=== PATIENT | female | born 1970 | race Caucasian/White ===

== ENCOUNTER 2017-09-25 15:56 | Emergency (ER) | payer OTHER ==
[2017-09-25 16:14] VITALS: BP 177/100; PULSE 85; O2SAT 97
[2017-09-25] MEDS ORDERED: BACTRIM DS TABLET PO STA (16:16)
[2017-09-25] MEDS ORDERED: TORAdol 30 mg Injection IM ONE (16:16)
--- NOTE | 2017-09-25 16:22 | ERPHSYRPT ---
- History of Present Illness Time Seen by Provider: 09/25/17 16:10 Source: patient Exam Limitations: no limitations Patient Subjective Stated Complaint: pt reports right hand carpal tunnel suregery 2 wks ago-states that hand began hurting-swelling and having drainage a few days ago Triage Nursing Assessment: pt pink warm and [id number] easy and nonlabored- no cough noted-incision on right wrist not approximated-clear drainage noted- redness around site-no warmth noted at this time-radial pulse present-pt reports full sensation to extremity Physician History: 46 y/o female s/p carpal tunnel surgery 2 weeks ago comes to the ER with complaints of right wrist pain, swelling and drainage for the past few days. Pt describes the pain as sharp, constant, 8/10 and not relieved by naproxen and tramadol. Pt denies any fever and chills. Pt has an appointment with hand surgeon on Saturday. Occurred: days ago Method of Injury: unknown Quality: constant Severity of Pain-Max: severe Severity of Pain-Current: severe Extremities Pain Location: wrist: right Modifying Factors: Improves With: nothing Associated Symptoms: none Allergies/Adverse Reactions: Penicillins Allergy (Intermediate, Verified 09/25/17 16:14) childhood Home Medications: Clonazepam 0.5 mg [Klonopin 0.5 MG] 0.5 mg PO BIDPRN PRN 11/26/15 [History ] Duloxetine HCl [Cymbalta] 60 mg PO DAILY 11/26/15 [History] Hx Tetanus, Diphtheria Vaccination/Date Given: No Hx Influenza Vaccination/Date Given: No Hx Pneumococcal Vaccination/Date Given: No Immunizations Up to Date: Yes - Review of Systems Constitutional: No Fever, No Chills Eyes: No Symptoms Ears, Nose, & Throat: No Symptoms Respiratory: No Cough, No Dyspnea Cardiac: No Chest Pain, No Edema, No Syncope Abdominal/Gastrointestinal: No Abdominal Pain, No Nausea, No Vomiting, No Diarrhea Genitourinary Symptoms: No Dysuria Musculoskeletal: Joint Pain, Joint Swelling, No Back Pain, No Neck Pain Skin: No Rash Neurological: No Dizziness, No Focal Weakness, No Sensory Changes Psychological: No Symptoms Endocrine: No Symptoms All Other Systems: Reviewed and Negative - Past Medical History Pertinent Past Medical History: Yes Neurological History: No Pertinent History ENT History: No Pertinent History Cardiac History: No Pertinent History Respiratory History: No Pertinent History Endocrine Medical History: No Pertinent History Musculoskeletal History: No Pertinent History GI Medical History: No Pertinent History, Other History: No Pertinent History Psycho-Social History: Depression Female Reproductive Disorders: Pelvic Inflammatory Disease Other Medical History: HEP C - Past Surgical History Past Surgical History: Yes Neuro Surgical History: No Pertinent History Cardiac: No Pertinent History Respiratory: No Pertinent History Gastrointestinal: No Pertinent History Genitourinary: No Pertinent History Musculoskeletal: No Pertinent History Female Surgical History: Tubal Ligation Other Surgical History: VIVI BIOPSY IN . CYST REMOVED FROM BREAST - Social History Smoking Status: Current every day smoker How long have you smoked: yrs Exposure to second hand smoke: Yes Alcohol Use: 3 per day Drug Use: none Patient Lives Alone: No - Female History Hx Now: No - Nursing Vital Signs Nursing Vital Signs: Initial Vital Signs Temperature 98.9 F 09/25/17 16:07 Pulse Rate 85 09/25/17 16:07 Respiratory Rate 20 09/25/17 16:07 Blood Pressure 177/100 09/25/17 16:07 O2 Sat by Pulse Oximetry 97 09/25/17 16:07 Pain Scale Pain Intensity 9 - Physical Exam General Appearance: mild distress, alert Eyes, Ears, Nose, Throat Exam: moist mucous membranes Neck Exam: non-tender, supple Cardiovascular/Respiratory Exam: chest non-tender, normal breath sounds, regular rate/rhythm, no respiratory distress Abdominal Exam: non-tender, No guarding Back Exam: normal inspection, No vertebral tenderness Shoulder Exam: normal inspection, non-tender, no evidence of injury Elbow/Forearm Exam: normal inspection, non-tender, no evidence of injury Wrist Exam: ecchymosis, limited ROM, pain, soft tissue tenderness, swelling Hand Exam: normal inspection, non-tender, no evidence of injury Neuro/Tendon Exam: normal sensation, normal motor functions Mental Status Exam: alert, oriented x 3, cooperative Skin Exam: normal color, warm, dry SpO2: 97 Oxygen Delivery: Room Air - Course Nursing assessment & vital signs reviewed: Yes Ordered Tests: Medication Summary Generic Name Dose Route Start Last Admin Trade Name Freq PRN Reason Stop Dose Admin Ketorolac Tromethamine 60 mg 09/25/17 16:16 Toradol 30 Mg Injection IM 09/25/17 16:17 STAT ONE Trimethoprim/Sulfamethoxazole 1 tab 09/25/17 16:16 Bactrim Ds Tablet PO 09/25/17 16:17 STAT STA - Progress Progress: improved Progress Note: 09/25/17 16:19 Pt will be d/c home on bactrim and norco for cellulitis. Pt has F/U with hand surgeon on Saturday. - Departure Time of Disposition: 16:20 Departure Disposition: Home Clinical Impression: Cellulitis of wrist Condition: Stable Critical Care Time: No Referrals: ARVIND SELF [Primary Care Provider] - Instructions: Cellulitis (Skin Infection), Adult (DC) Additional Instructions: Follow up with hand surgeon this week. Return to the ER if you should have fever, chills, or worsening pain, swelling or drainage. Prescriptions: Hydrocodone Bit/Acetaminophen [Pike 5-325 Tablet] 1 each PO QID PRN #10 tablet MDD 4 PRN Reason: Pain Sulfamethoxazole/Trimethoprim [Bactrim Ds Tablet] 1 each PO BID #13 tablet
[2017-09-25] MEDS ORDERED: BACTRIM DS TABLET PO ONE (16:26)
[2017-09-25] MEDS ORDERED: TORAdol 30 mg Injection ONE (16:26)
== END 2017-09-25 16:44 | disposition home or self-care (01) ==
LOC: ED 15:56
DX: L03.113 Cellulitis of right upper limb (principal); Z98.890 Other specified postprocedural states
CPT/HCPCS: 96372; 99284; J1885; A9270-GY